=== PATIENT | male | born 1955 | race Caucasian/White ===

== ENCOUNTER 2022-02-19 10:02 | Outpatient (CLI) | payer BC, SELFPAY ==
--- NOTE | 2022-02-19 10:09 | US_ITS ---
HISTORY: Cirrhosis. TECHNIQUE: Garcia scale and color doppler imaging was performed of the right upper quadrant. 82 images. COMPARISON: None. FINDINGS: LIVER: 19.4 cm in length. Heterogeneous echotexture with a nodular contour and without focal lesion demonstrated. No intrahepatic ductal dilatation. No significant perihepatic ascites. MAIN PORTAL VEIN: Patent with hepatopedal flow. COMMON BILE DUCT: 3 mm in diameter. GALLBLADDER: Multiple mobile gallstones. 2 mm wall thickness, within normal limits. No pericholecystic fluid. Sonographic Perea sign not assessed. PANCREAS: Visualized proximal portion unremarkable. RIGHT KIDNEY: 12 cm in length with a cortical thickness of 2.2 cm. No hydronephrosis or gross renal mass demonstrated. US/Abdomen Limited IMPRESSION: Cirrhotic liver. Cholelithiasis. Electronically Signed: Sophia Wagner MD at 10:47 EST ,
== END 2022-02-19 23:59 | disposition home or self-care (01) ==
LOC: US 10:07
DX: K74.60 Unspecified cirrhosis of liver (principal)
CPT/HCPCS: 76705

== ENCOUNTER 2022-02-23 08:34 | Outpatient (CLI) | payer BC, SELFPAY ==
--- NOTE | 2022-02-23 08:43 | US_ITS ---
STUDY: ABDOMINAL ULTRASOUND - ELASTOGRAPHY REASON FOR VISIT: Male, 66 years old. Fatty infiltration of the liver. TECHNIQUE: Liver stiffness measurements were obtained on a [employer] RS 85 ultrasound machine using a CA 1-7 probe following the SRU guidelines. 3 measurements were obtained using a 2-D-SWE method. The IQR/M was 17% suggesting a quality data set. TECHNICAL QUALITY: Adequate. COMPARISON: Comparison is made with prior study dated 02/19/2022. FINDINGS: Liver: Hepatomegaly. Median liver stiffness measured 13 kPa. 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 Electronically Signed: Manuel Crystal MD at 10:07 EST ,
== END 2022-02-23 23:59 | disposition home or self-care (01) ==
PROVIDERS: PCP Family Medicine
DX: K74.60 Unspecified cirrhosis of liver (principal)
CPT/HCPCS: 76981

== ENCOUNTER → 2022-10-04 | Outpatient (CLI) | payer BC, SELFPAY ==
--- NOTE | 2022-10-04 09:29 | US_ITS ---
STUDY: ABDOMINAL ULTRASOUND - RIGHT UPPER QUADRANT REASON FOR VISIT: Male, 67 years old HEPATIC FIBROSIS, ADVANCED FIBROSIS TECHNIQUE: Ultrasound evaluation of the right upper quadrant was performed with real-time and static blum-scale imaging. TECHNICAL QUALITY: Limited. Examination limited due to a combination of factors including obesity and bowel gas. COMPARISON: 02/19/2022. FINDINGS: Liver: The liver measures 17.2 cm. There is a nodular surface pattern of the liver consistent with cirrhosis. There is a heterogeneous echogenicity of the liver. The bile ducts are within normal limits. There is hepatic color flow. The direction of portal flow is hepatopetal. There is no demonstrated mass lesion. Gallbladder: There is a markedly distended gallbladder. The gallbladder wall measures 2 mm. There is a negative sonographic Perea''s sign. There is no pericholecystic fluid. There are multiple echogenic structures within the gallbladder, consistent with multiple gallstones. Common Bile Duct (C.B.D.): The common bile duct measures 1.2 mm. Pancreas: Normal size of the head, body and tail of the pancreas. There is normal echogenicity of the pancreas. There is no demonstrated pancreatic mass or cyst. Right Kidney: Normal size of the right kidney. The right kidney measures 12.3 cm. Normal renal cortex. The right cortex measures 1.8 cm. There is no demonstrated renal mass or cyst. There is no right hydronephrosis. US/Abdomen Limited IMPRESSION: Limited as above. Cirrhosis, as seen previously. Cholelithiasis, as seen previously. Electronically Signed: Kyle Block MD at 22:22 EDT ,
== END | disposition home or self-care (01) ==
PROVIDERS: PCP Family Medicine
DX: K74.02 Hepatic fibrosis, advanced fibrosis (principal)
CPT/HCPCS: 76705